=== PATIENT | male | born 1995 | race Caucasian/White ===

== ENCOUNTER 2022-08-02 10:11 | Emergency (ER) | payer SELFPAY ==
--- NOTE | 2022-08-02 10:13 | ECG_ITS ---
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 Measurements Intervals [place] Rate: 99 P: 37 MI: 123 QRS: 63 QRSD: 96 T: 55 QT: 327 QTc: 420 Interpretive Statements SINUS RHYTHM WITH SINUS ARRHYTHMIA Compared to ECG 05/17/2015 11:53:00 Short MI interval no longer present Intraventricular conduction delay no longer present Early repolarization no longer present Electronically Signed On 08-02-2022 16:20:38 POLICY OFFICER by Natalia Baldwin M.D. [id number]
--- NOTE | 2022-08-02 10:13 | XRR_ITS ---
PROCEDURE INFORMATION: Exam: XR Chest Exam date and time: 08/02/2022 10:22 AM Age: 26 years old Clinical indication: Angina pectoris; Patient HX: Cp for 1 month, pain in back and on left side; Additional info: Chest pain TECHNIQUE: Imaging protocol: Radiologic exam of the chest. Views: 1 view. COMPARISON: CR XR chest 2V* [id number] 05/28/2016 6:22 PM FINDINGS: Lungs: Unremarkable. No consolidation. Pleural spaces: Unremarkable. No pleural effusion. No pneumothorax. Heart/Mediastinum: Unremarkable. No cardiomegaly. Bones/joints: Unremarkable. XR/XR chest 1V portable [id number] IMPRESSION: No acute findings.
[2022-08-02 10:17] VITALS: BP 115/78; PULSE 102; RESP 17; TEMP 36.8; O2SAT 96; BMI 25.0
--- NOTE | 2022-08-02 10:18 | ECG_ITS ---
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 Measurements Intervals [place] Rate: 99 P: 37 TN: 123 QRS: 63 QRSD: 96 T: 55 QT: 327 QTc: 420 Interpretive Statements SINUS RHYTHM WITH SINUS ARRHYTHMIA Compared to ECG 05/17/2015 11:53:00 Short TN interval no longer present Intraventricular conduction delay no longer present Early repolarization no longer present Electronically Signed On 08-02-2022 14:24:42 FURNITURE SANDER by Natalia Baldwin M.D. [email or web address]/[id number]
[2022-08-02 10:22] VITALS: BP 99/61; PULSE 90; RESP 16; O2SAT 97
--- NOTE | 2022-08-02 10:29 | ED_ITS ---
HPI - Chest Pain General: Chief Complaint: Chest Pain Stated Complaint: chest pain 1xmonth Time Seen by Provider: 08/02/22 10:13 Source: patient Mode of arrival: ambulatory Limitations: no limitations History of Present Illness: Patient is a 26-year-old male who presents to ED today with a complaint of right-sided chest pains that have been present over the past month. He states pain is located to his right anterior lateral chest near the nipple line. He states pain has been constant and seems to be worse with certain movements of the chest as well as coughing, deep inhalation, and movement. Patient states he was driving today when he sneezed and immediately felt excruciating pain to the area and states he was having trouble moving his right arm. After further clarification he states that movement of his right arm exacerbates the pain in his chest. He denies shortness of breath. He does state he has been coughing more than he normally does with his smoking history. No hemoptysis. No fevers. MD complaint: chest pain Onset (ago): week(s) Timing of current episode: constant Prior episodes: No Pain location: right chest and lateral Pain radiation: none Severity: moderate Quality: sharp Relieving factors: nothing Exacerbating factors: inspiration, movement and other (coughing/sneezing ) Associated symptoms: Deny abdominal pain, dyspnea, fever(s), nausea, palpitations, syncope or vomiting Treatment prior to arrival: none Risk Factors: Coronary artery disease risk factors: smoking history Thoracic aortic dissection risk factors: none Review of Systems Const: Denies: fever(s), chills, body aches, fatigue or malaise Eyes: Denies: change in vision, blurry vision, photophobia, floaters or seeing flashes Card: Reports: chest pain; Denies: palpitations, irregular heart rhythm, edema, swelling of feet/ankles, lightheadedness, syncope, pre-syncope, dyspnea on exertion, orthopnea, leg pain with exertion or acrocyanosis Resp: Reports: non-productive cough, pain on inspiration and chest congestion; Denies: dyspnea, wheezing, stridor, change in phlegm color or hemoptysis GI: Denies: abdominal pain, nausea, vomiting or change in bowel habits : Denies: flank pain, dysuria or hematuria Musc: Denies: neck pain, back pain, extremity pain or joint pain Skin/Breast: Denies: rash Neuro: Denies: headache(s), numbness in extremities, weakness in extremities, sensory changes or dizziness Physical Exam Const: COMMON NORMALS: no acute distress, average body habitus, patient oriented x3, no limitations, healthy appearing, alert and well nourished GENERAL APPEARANCE: cooperative and odor of alcohol detected OR IENTATION/CONSCIOUSNESS: Yes awake, Yes oriented to person, Yes oriented to place and Yes oriented to time HENMT: COMMON NORMALS: normocephalic and atraumatic HEAD & SCALP: normal to inspection, normocephalic and atraumatic Eye: GENERAL EYE: appearance normal, both eyes and all related structures Neck/C-Spine: COMMON NORMALS: full ROM, no lymphadenopathy, supple and no meningeal signs Chest: COMMONS NORMALS: normal inspection of the chest and normal palpation of entire chest wall OTHER: patient doesn't have reproducible chest pain with palpation however pain is producible with movement/ROM of R UE and twisting/lateral rotations of chest Chest images (male): 1. Resp: COMMON NORMALS: normal respiratory effort and clear to auscultation bilaterally AUSCULTATION: clear to auscultation bilaterally Cardio: COMMON NORMALS: regular rhythm RATE: tachycardic (at times during my examination) RHYTHM: regular rhythm GI: COMMON NORMALS: Normal to inspection, nondistended, normoactive bowel sounds present, Soft to palpation, non-tender, No hepatosplenomegaly present and no masses PALPATION: Yes Soft to palpation and Yes No hepatosplenomegaly present : COMMON NORMALS: Yes no CVA tenderness BLADDER/KIDNEY EXAM: Yes no CVA tenderness Back/Pelvis: COMMON NORMALS: no CVA tenderness and thoracic and lumbar spine normal to inspection Extremity: COMMON NORMALS: normal to inspection, capillary refill normal, no joint enlargement, no clubbing, cyanosis or edema, no calf tenderness and no pedal edema GENERAL: Yes normal exam except as noted Neuro: SYLVIE COMA SCALE: document GCS findings [place] coma scale eye opening: Spontaneous [place] coma scale verbal response: Orientated Sylvie coma scale motor response: Obey commands [place] coma scale total score: 15 COMMON NORMALS: patient oriented x3, moves all extremities, no focal motor deficits, no sensory deficits noted and gait normal SENSORIUM/ORIENTATION: Yes alert, Yes oriented to person, Yes oriented to place and Yes oriented to time MENINGEAL SIGNS: Yes no meningeal signs Skin: COMMON NORMALS: no rashes or lesions noted GENERAL SKIN EXAM: no rashes or lesions noted Course Vital Signs: Vital signs: Vital Signs Temperature 98.2 F 08/02/22 10:17 Pulse Rate 84 08/02/22 11:19 Respiratory Rate 18 08/02/22 11:19 Blood Pressure 99/61 08/02/22 11:19 Pulse Oximetry 95 08/02/22 11:19 Oxygen Delivery Me thod 08/02/22 11:19 MDM - Chest Pain Medical Decision Making Patient is a 26-year-old male here for right-sided chest pain over the past month that acutely worsened after sneezing when he was driving earlier today. Pain seems to be reproducible with rotation/movement of his chest and movement of his right upper extremity. Pulses to the upper extremities are equal bilaterally. Vital signs are stable at this time. Blood work including D-dimer and troponin are unremarkable. EKG showing no ischemic changes. At this time patient will be allowed discharge. Conservative therapies discussed at home for anti-inflammatory use and ice/heat. Follow-up with primary care in one week if symptoms do not seem to be improving. Return ED precautions given. Lab Data 08/02/22 10:38 08/02/22 10:38 Radiology Impressions Chest X-Ray 08/02/22 10:13 IMPRESSION: No acute findings. Laboratory Results WBC 7.9 10^3/uL (4.0-10.0) 08/02/22 10:38 RBC 5.63 10^6/uL (4.1-5.3) H 08/02/22 10:38 Hgb 19.1 g/dL (11.7-16.6) H 08/02/22 10:38 Hct 55.5 % (42.0-52.0) H 08/02/22 10:38 MCV 98.6 fl (80-94) H 08/02/22 10:38 MCH 33.9 pg (28.0-34.0) 08/02/22 10:38 MCHC 34.4 g/dL (30.0-36.0) 08/02/22 10:38 RDW 12.9 % (12.1-15.1) 08/02/22 10:38 Plt Count 260 10^3/cmm (130-400) 08/02/22 10:38 MPV 10.4 fL (7.4-10.4) 08/02/22 10:38 Neut % (Auto) 63.4 % 08/02/22 10:38 Lymph % (Auto) 22.7 % 08/02/22 10:38 Collier % (Auto) 10.6 % 08/02/22 10:38 Eos % (Auto) 1.9 % 08/02/22 10:38 Baso % (Auto) 0.8 % 08/02/22 10:38 Neut # (Auto) 5.03 10^3/uL (1.8-7.7) 08/02/22 10:38 Lymph # (Auto) 1.8 10^3/uL (0.8-4.8) 08/02/22 10:38 Collier # (Auto) 0.8 10^3/uL (0.2-0.9) 08/02/22 10:38 Eos # (Auto) 0.2 10^3/uL (0.0-0.8) 08/02/22 10:38 Baso # (Auto) 0.1 10^3/uL (0.0-0.1) 08/02/22 10:38 Nucleated RBC % (auto) 0 % 08/02/22 10:38 Nucleated RBCs # 0.0 /100WBC 08/02/22 10:38 D-Dimer <= 0.27 ug/mIFEU (0-0.59) 08/02/22 10:38 Sodium 141 mmol/L (136-145) 08/02/22 10:38 Potassium 4.2 mmol/L (3.5-5.1) 08/02/22 10:38 Chloride 102 mmol/L (98-107) 08/02/22 10:38 Carbon Dioxide 24 mmol/L (22-29) 08/02/22 10:38 Anion Gap 19.2 (5-19) H 08/02/22 10:38 BUN 8 mg/dL (6-20) 08/02/22 10:38 Creatinine 0.9 mg/dL (0.7-1.2) 08/02/22 10:38 GFR Calculation 100.5 mL/min (90-130) 08/02/22 10:38 Glucose 75 mg/dL (65-115) 08/02/22 10:38 Calculated Osmolality 289 mOsm/kg (285-295) 08/02/22 10:38 Calcium 9.0 mg/dL (8.5-10.5) 08/02/22 10:38 Total Bilirubin 0.4 mg/dL (0.15-1.2) 08/02/22 10:38 AST 29 U/L (0-40) 08/02/22 10:38 ALT 29 U/L (0-41) 08/02/22 10:38 Alkaline Phosphatase 100 U/L (40-130) 08/02/22 10:38 Troponin T Gen 5 ng/L 6 ng/L (0-15) 08/02/22 10:38 Total Protein 7.2 g/dL (6.6-8.7) 08/02/22 10:38 Albumin 4.4 g/dL (3.5-5.2) 08/02/22 10:38 Globulin 2.8 g/dL (1.3-4.6) 08/02/22 10:38 Discharge Plan Discharge Patient Disposition: Home Clinical Impression: Strain of chest wall Qualifiers: Encounter type: initial encounter Qualified Code(s): S29.011A - Strain of muscle and tendon of front wall of thorax, initial encounter Condition: Stable Prescriptions: No Action naproxen 250 mg Tablet 250 mg PO BID PRN (Reason: Pain) Discharge Orders: Discharge ED (Routine); Ordered 08/02/22 Ordered By: Anju Looney Patient Instructions: Chest Pain - Chest Wall, Chest Wall Pain (ED) Coding Level of Care Code ED Manager Of Corporate Communications for Matt Bello
[2022-08-02 11:03] LABS: Basophils # 0.1 10^3/uL (0.0-0.1); Basophils % 0.8 %; Eosinophils # 0.2 10^3/uL (0.0-0.8); Eosinophils % 1.9 %; Hematocrit 55.5 % (42.0-52.0); Hemoglobin 19.1 g/dL (11.7-16.6); Lymphocytes # 1.8 10^3/uL (0.8-4.8); Lymphocytes % 22.7 %; Mean Corpuscular HGB Conc 34.4 g/dL (30.0-36.0); Mean Corpuscular Hemoglobin 33.9 pg (28.0-34.0); Mean Corpuscular Volume 98.6 fl (80-94); Mean Platelet Volume 10.4 fL (7.4-10.4); Monocytes # 0.8 10^3/uL (0.2-0.9); Monocytes % 10.6 %; Neutrophils # 5.03 10^3/uL (1.8-7.7); Neutrophils % 63.4 %; Nucleated Red Blood Cells % 0 %; Platelet Count 260 10^3/cmm (130-400); Red Blood Count 5.63 10^6/uL (4.1-5.3); Red Cell Distribution Width 12.9 % (12.1-15.1); White Blood Count 7.9 10^3/uL (4.0-10.0)
[2022-08-02 11:12] LABS: D Dimer <= 0.27 ug/mIFEU (0-0.59)
[2022-08-02] MEDS: sodium chloride 0.9% 1,000 ML 999 ML IV (11:12)
[2022-08-02 11:18] LABS: Alanine Aminotransferase 29 U/L (0-41); Albumin Level 4.4 g/dL (3.5-5.2); Alkaline Phosphatase 100 U/L (40-130); Anion Gap 19.2 (5-19); Aspartate Amino Transferase 29 U/L (0-40); Blood Urea Nitrogen 8 mg/dL (6-20); Carbon Dioxide 24 mmol/L (22-29); Chloride 102 mmol/L (98-107); Creatinine Clr Calc Pharmacy 150.3482; Globulin 2.8 g/dL (1.3-4.6); Glomerular Filtration Rate 100.5 mL/min (90-130); Glucose 75 mg/dL (65-115); Osmolality Calculated 289 mOsm/kg (285-295); Potassium 4.2 mmol/L (3.5-5.1); Sodium 141 mmol/L (136-145); Total Bilirubin 0.4 mg/dL (0.15-1.2); Total Protein 7.2 g/dL (6.6-8.7)
[2022-08-02 11:19] VITALS: BP 99/61; PULSE 84; RESP 18; O2SAT 95
[2022-08-02 11:20] LABS: Troponin T (5th) Once 6 ng/L (0-15)
[2022-08-02 11:43] VITALS: BP 99/61; PULSE 84; RESP 18; O2SAT 95
== END 2022-08-02 11:50 | disposition home or self-care (01) ==
PROVIDERS: Emergency Provider Physician Assistant
DX: S29.011A Strain of muscle and tendon of front wall of thorax, initial encounter (principal); X58.XXXA Exposure to other specified factors, initial encounter
CPT/HCPCS: 71045; 80053; 84484; 85025; 85378; 93005; 96360; 99285; J7030

== ENCOUNTER 2025-01-23 10:40 | Emergency (ER) | payer SELFPAY ==
--- OUTSIDE RECORDS SUMMARY | 2025-01-23 10:46 | XMS_ITS | Encounter Summary ---
Author Organization [facility] Address [address] [place] [address] Care Team Providers Care Pump Erector Name Role Phone Erasmo Marie MD Primary Care Provider Eboni vailable Encounter Details Date Type Department Care Team (Latest Contact Info) Description 10/12/2004 Outpatient Historical [facility] [place] [address] [place] [phone] Erasmo Marie MD NO ADDRESS ON FILE NAUSEA WITH VOMITING (Primary Dx); ABDOMINAL PAIN UNSPEC SITE; NONINFEC GASTROENTERIT NEC; PARALYTIC ILEUS (CMS/HCC) Social History Tobacco Use Types Packs/Day Years Used Date Smoking Tobacco: Never Assessed Sex and Gender Information Value Date Recorded Sex Assigned at Not on file Legal Sex Male 3:18 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 Gender Identity Not on file Sexual Orientation Not on file documented as of this encounter Plan of Treatment Not on file documented as of this encounter Visit Diagnoses Diagnosis Nausea with vomiting- Primary Abdominal pain, unspecified site Other and unspecified noninfectious gastroenteritis and colitis(558.9) Other and unspecified noninfectious gastroenteritis and colitis Paralytic ileus (CMS/HCC) Paralytic ileus documented in this encounter Care Teams Pump Erector Relationship Specialty Start Date End Date Erasmo Marie MD NO ADDRESS ON FILE PCP - General 10/12/04 05/05/18 documented as of this encounter
--- OUTSIDE RECORDS SUMMARY | 2025-01-23 10:46 | XMS_ITS | Encounter Summary ---
Author Organization [facility] Address [address] [place] [address] Care Team Providers Care Gear Tooth Lapping Machine Operator Name Role Phone Erasmo Marie MD Primary Care Provider Eboni vailable Encounter Details Date Type Department Care Team (Latest Contact Info) Description 07/14/2003 Outpatient Historical [facility] Erasmo Marie MD NO ADDRESS ON FILE Routine child health exam (Primary Dx) Social History Tobacco Use Types Packs/Day Years Used Date Smoking Tobacco: Never Assessed Sex and Gender Information Value Date Recorded Sex Assigned at Not on file 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
--- OUTSIDE RECORDS SUMMARY | 2025-01-23 10:46 | XMS_ITS | Encounter Summary ---
Author Organization [facility] Address [address] [place] [address] Care Team Providers Care Systems Applications Programming Lead Name Role Phone Erasmo Marie MD Primary Care Provider Eboni vailable Encounter Details Date Type Department Care Team (Latest Contact Info) Description 10/12/2004 Outpatient Historical [facility] [address] [place] [phone] Erasmo Marie MD NO ADDRESS ON FILE ASCITES (Primary Dx) Social History Tobacco Use Types Packs/Day Years Used Date Smoking Tobacco: Never Assessed Sex and Gender Information Value Date Recorded Sex Assigned at Not on file 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
--- OUTSIDE RECORDS SUMMARY | 2025-01-23 10:46 | XMS_ITS | Clinical Summary ---
Author Organization [facility] Address [address] [place] [address] Care Team Providers Care Director Graphics Name Role Phone Unavailable Primary Care Provider Unavailabl e Allergies No known active allergies Medications No known medications Immunizations Immunization Administration Dates Next Due (ADACEL/BOOSTRIX)(10 YR UP) TDAP VACCINE, 0.5ML, IM 02/24/2008 (HAVRIX/VAQTA)(12 MO-18 YRS) HEPATITIS A VACCINE 0.5 ML PED/ADOL 2 DOSE, IM 02/24/2008 (M-M-R II/PRIORIX)(12 [place] UP) MEASLES, MUMPS AND RUBELLA VIRUS VACCINE, 0.5 ML IM/SUBCUT 02/01/1999,03/22/1995 (VARIVAX)(12 MOS UP)VARICELL A VIRUS VACCINE (PF) 0.5 ML, SUB CUT 02/24/2008,12/24/1995 Dt Dtp Dtap Vaccine 02/01/1999, 5,07/03/1994,04/25,02/21/1994 HIB, Unspecified Formulation 03/22/1995,04/25/19 94,02/21/1994 Hepatitis A Vaccine 02/01/1999 Hepatitis B Vaccine 02/01/1999 IPV/OPV 02/01/1999, 5,04/25/1994,02/21 Meningococcal A Conjugate Vaccine IM 02/24/2008 Social History Tobacco Use Types Packs/Day Years Used Date Smoking Tobacco: Never Assessed Sex and Gender Information Value Date Recorded Sex Assigned at Not on file 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 Gender Identity Not on file Sexual Orientation Not on file Last Filed Vital Signs Vital Sign Reading Time Taken Comments Blood Pressure 101/56 02/24/2008 1:25 PM CDT Pulse 50 02/24/2008 1:25 PM CDT Temperature - - Respiratory Rate - - Oxygen Saturation - - Inhaled Oxygen Concentration - - Weight 63.5 kg (140 lb) 02/24/2008 1:25 PM CDT Height 179.1 cm (5' 10.5 ) 02/24/2008 1:25 PM CD T Body Mass Index 19.8 02/24/2008 1:25 PM CDT Plan of Treatment Health Maintenance Due Date Last Done Comments HEPATITIS B VACCINES (2 of 3 - 3-dose series) 03/01/1999 02/01/1999 HPV VACCINES (1 - Male 3-dos e series) 2008 DTAP/TDAP/TD VACCINES (7 - T d or Tdap) 02/23/2018 02/24/2008, 02/01/1999, 03/22/1995, Additional history exists INFLUENZA VACCINE (#1) 2025 Insurance [employer]
--- OUTSIDE RECORDS SUMMARY | 2025-01-23 10:46 | XMS_ITS | Encounter Summary ---
Author Organization [facility] Address [address] [place] [address] Care Team Providers Care Cooper Helper Name Role Phone Erasmo Marie MD Primary Care Provider Eboni vailable Encounter Details Date Type Department Care Team (Latest Contact Info) Description 10/12/2004 Outpatient Historical [facility] [facility] [place] [address] [place] [address] Fred Wilks MD NO ADDRESS ON FILE INFECTIOUS ENTERITIS NOS (Primary Dx) Social History Tobacco Use Types Packs/Day Years Used Date Smoking Tobacco: Never Assessed Sex and Gender Information Value Date Recorded Sex Assigned at Not on file Legal Sex Male 3:18 AM ACUTE CARE PHYSICAL THERAPIST Gender Identity Not on file Sexual Orientation Not on file documented as of this encounter Plan of Treatment Not on file documented as of this encounter Visit Diagnoses Diagnosis Infectious colitis, enteritis, and gastroenteritis- Primary documented in this encounter Care Teams Cooper Helper Relationship Specialty Start Date End Date Erasmo Marie MD NO ADDRESS ON FILE PCP - General 10/12/04 05/05/18 documented as of this encounter
--- OUTSIDE RECORDS SUMMARY | 2025-01-23 10:46 | XMS_ITS | Encounter Summary ---
Author Organization [facility] Address [address] [place] [address] Care Team Providers Care Curriculum Specialist Name Role Phone Erasmo Marie MD Primary Care Provider Eboni vailable Encounter Details Date Type Department Care Team (Late st Contact Info) Description 06/12/2000 Outpatient Historical [facility] [address] [place] [address] Erasmo Marie MD NO ADDRESS ON FILE Social History Tobacco Use Types Packs/Day Years Used Date Smoking Tobacco: Never Assessed Sex and Gender Information Value Date Recorded Sex Assigned at Not on file Legal Sex Male 3:18 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
--- OUTSIDE RECORDS SUMMARY | 2025-01-23 10:46 | XMS_ITS | Encounter Summary ---
Author Organization [facility] Address [address] [place] [address] Care Team Providers Care Priming Machine Operator Name Role Phone Erasmo Marie MD Primary Care Provider Eboni vailable Encounter Details Date Type Department Care Team (Latest Contact Info) Description 05/10/2001 Outpatient Historical [facility] [address] [place] [phone] Jey Waggoner MD [address] [place] [phone] COUGH (Primary Dx) Social History Tobacco Use Types Packs/Day Years Used Date Smoking Tobacco: Never Assessed Sex and Gender Information Value Date Recorded Sex Assigned at Not on file 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
--- OUTSIDE RECORDS SUMMARY | 2025-01-23 10:46 | XMS_ITS | Encounter Summary ---
Author Organization [facility] Address [address] [place] [address] Care Team Providers Care Monotype Keyboard Operator Name Role Phone Erasmo Marie MD Primary Care Provider Eboni vailable Encounter Details Date Type Department Care Team (Latest Contact Info) Description 05/14/2001 Outpatient Historical [facility] [address] [place] [address] Erasmo Marie MD NO ADDRESS ON FILE BRONCOPNEUMONIA ORG NOS (Primary Dx) Social History Tobacco Use Types Packs/Day Years Used Date Smoking Tobacco: Never Assessed Sex and Gender Information Value Date Recorded Sex Assigned at Not on file Legal Sex Male 3:18 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
--- OUTSIDE RECORDS SUMMARY | 2025-01-23 10:46 | XMS_ITS | Encounter Summary ---
Author Organization [facility] Address [address] [place] [address] Care Team Providers Care Chairlift Operator Name Role Phone Erasmo Marie MD Primary Care Provider Eboni vailable Encounter Details Date Type Department Care Team (Latest Contact Info) Description 10/13/2000 Outpatient Historical [facility] [address] [place] [address] Fred Wilks MD NO ADDRESS ON FILE Open wound of hand except finger(s) alone, without mention of complication (Primary Dx) Social History Tobacco Use Types Packs/Day Years Used Date Smoking Tobacco: Never Assessed Sex and Gender Information Value Date Recorded Sex Assigned at Not on file Legal Sex Male 3:18 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
--- OUTSIDE RECORDS SUMMARY | 2025-01-23 10:46 | XMS_ITS | Encounter Summary ---
Author Organization [facility] Address [address] [place] [address] Care Team Providers Care Knuckle Bender Name Role Phone Erasmo Marie MD Primary Care Provider Eboni vailable Encounter Details Date Type Department Care Team (Late st Contact Info) Description 01/28/2001 Outpatient Historical [facility] [address] [place] [address] Erasmo Marie MD NO ADDRESS ON FILE Social History Tobacco Use Types Packs/Day Years Used Date Smoking Tobacco: Never Assessed Sex and Gender Information Value Date Recorded Sex Assigned at Not on file Legal Sex Male 3:18 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
--- OUTSIDE RECORDS SUMMARY | 2025-01-23 10:46 | XMS_ITS | Encounter Summary ---
Author Organization [facility] Address [address] [place] [address] Care Team Providers Care Textile Designer Name Role Phone Erasmo Marie MD Primary Care Provider Eboni vailable Encounter Details Date Type Department Care Team (Latest Contact Info) Description 04/19/2003 Outpatient Historical [facility] Ur[facility] [address] [place] [address] Fred Wilks MD NO ADDRESS ON FILE ACUTE PHARYNGITIS (Primary Dx) Social History Tobacco Use Types Packs/Day Years Used Date Smoking Tobacco: Never Assessed Sex and Gender Information Value Date Recorded Sex Assigned at Not on file 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
--- OUTSIDE RECORDS SUMMARY | 2025-01-23 10:46 | XMS_ITS | Encounter Summary ---
Author Organization [facility] Address [address] [place] [address] Care Team Providers Care Rn Pediatric Icu Name Role Phone Erasmo Marie MD Primary Care Provider Eboni vailable Encounter Details Date Type Department Care Team (Latest Contact Info) Description 05/10/2001 Outpatient Historical [facility]s-[place] [address] [place] [address] Jey Waggoner MD [address] [place] [phone] BRONCOPNEUMONIA ORG NOS (Primary Dx); ACUTE BRONCHIOLITIS/OTHR INFECT ORG Social History Tobacco Use Types Packs/Day Years Used Date Smoking Tobacco: Never Assessed Sex and Gender Information Value Date Recorded Sex Assigned at Not on file Legal Sex Male 3:18 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
[2025-01-23 10:50] VITALS: BP 143/97; PULSE 87; RESP 14; TEMP 36.8; O2SAT 97; BMI 22.5
--- NOTE | 2025-01-23 11:10 | ED_ITS ---
HPI - Dental/Oral 2 General: Chief complaint: Dental/Oral Stated complaint: L side tooth Pain wants meds changed Time Seen by Provider: 01/23/25 11:03 Source: patient Mode of arrival: ambulatory Limitations: no limitations History of Present Illness: Patient is a 29-year-old male who presents to the ED today for complaints of left-sided dental pain and facial swelling. He states he has had symptoms over the past several days. Was reportedly seen 2 days ago and placed on amoxicillin. He states he has had approximately 3-4 doses of this medication and is not improving. He is not running fevers. He is eating and drinking normally. No drooling or muffled voice. No headache or neck pain. He is in the process of trying to get into a dentist. MD Complaint: tooth pain Onset (ago): day(s) Duration: constant Severity: moderate Relieving factors: nothing Exacerbating factors: nothing Context: history of dental caries and poor dental care Associated symptoms: Denies fever(s) or odynophagia Related Data Home Medications ?Medication ?Instructions ?Recorded ?Confirmed naproxen 250 mg tablet 250 mg PO BID PRN Pain 08/0208/02/22 Previous Rx's ?Medication ?Instructions ?Recorded clindamycin HCl 300 mg capsule 300 mg PO Q6H 7 days #2 8 caps 01/23/25 Allergies Allergy/AdvReac Type Severity Reaction Status Date / Time No Known Allergies Allergy Verified 01/23/25 10:53 Review of Systems 2 Const: Denies: fever(s), chills, body aches, fatigue or malaise ENMT: Reports: dental pain and sinus pain; Denies: throat pain, uvular edema, enlarged tonsils, odynophagia, hoarseness, swelling of lips/tongue, oral sores, ear discharge or nasal discharge Card: Denies: chest pain, palpitations, lightheadedness, syncope or pre- syncope Resp: Denies: dyspnea GI: Denies: nausea or vomiting Musc: Denies: neck pain Skin/Breast: Denies: rash Neuro: Denies: headache(s) Physical Exam 2 Const: COMMON NORMALS: no acute distress, average body habitus, patient oriented x3, no limitations, healthy appearing, alert and well nourished G ENERAL APPEARANCE: cooperative ORIENTATION/CONSCIOUSNESS: Yes awake, Yes oriented to person, Yes oriented to place and Yes oriented to time HENMT: COMMON NORMALS: normocephalic, atraumatic and Normal external nose present HEAD & SCALP: normal to inspection, normocephalic and atraumatic F GAYLE & SINUS: edema on the left; no crepitus, no erythema and no fluctuance NOSE: Normal external nose present MOUTH: Normal oral and palatal mucosa present, lip normal, tongue normal and Normal salivary glands and ducts present TEETH & GINGIVA: Yes caries and Yes poor dentition TEETH & GINGIVA IMAGES: 1. fractured/severe decay 2. significant tooth deterioration due t o decay THROAT: no uvular edema Eye: COMMON NORMALS: Equal, round and reactive pupils present and EOMs intact bilaterally GENERAL EYE: appearance normal, both eyes and all related structures and normal light reflex PUPIL: Yes Equal, round and reactive pupils present DIRECT OPHTHALMOSCOPY: Yes normal light reflex Neck/C-Spine: COMMON NORMALS: full ROM, no lymphadenopathy and no meningeal signs GENERAL: Yes normal visual inspection, No anterior neck swelling and No submandibular swelling Resp: COMMON NORMALS: normal respiratory effort and clear to auscultation bilaterally AUSCULTATION: clear to auscultation bilaterally Cardio: COMMON NORMALS: regular rate and regular rhythm RATE: regular rate RHYTHM: regular rhythm Neuro: COMMON NORMALS: patient oriented x3 SENSORIUM/ORIENTATION: Yes alert, Yes oriented to person, Yes oriented to place and Yes oriented to time MENINGEAL SIGNS: Yes no meningeal signs Course 2 Vital Signs: Vital signs: Vital Signs Temperature 98.2 F 01/23/25 10:50 Pulse Rate 87 01/23/25 10:50 Respiratory Rate 14 01/23/25 10:50 Blood Pressure 143/97 01/23/25 10:50 Pulse Oximetry 97 01/23/25 10:50 Oxygen Delivery Me thod Room Air 01/23/25 10:50 MDM - Dental/Oral Medical Decision Making Patient here for dental pain and facial swelling. This time I do not appreciate any evidence of drainable dental abscess. He is requesting to change his antibiotics-will place him on Clindamycin instead. Recommend prompt dental follow-up. Return precautions discussed. Medical Records I reviewed the patient's medical records. No radiology studies performed this visit Discharge Plan Discharge Patient Disposition: Home Clinical Impression: Toothache, Dental caries Condition: Stable Prescriptions: New clindamycin HCl 300 mg capsule 300 mg PO Q6H 7 Days Qty: 28 0RF No Action naproxen 250 mg Tablet 250 mg PO BID PRN (Reason: Pain) Discharge Orders: Discharge ED (Routine); Ordered 01/23/25 Ordered By: Anju Looney Patient Instructions: Toothache (ED), Patient Portal & Elvis Instructions, Dental Abscess Print Language: Tunisian Coding Level of Care Code ED Guide Plant for Matt Bello
== END 2025-01-23 11:38 | disposition home or self-care (01) ==
PROVIDERS: Emergency Provider Physician Assistant
DX: K08.89 Other specified disorders of teeth and supporting structures (principal); K02.9 Dental caries, unspecified
CPT/HCPCS: 99283

== ENCOUNTER 2025-03-06 08:16 | Emergency (ER) | payer SELFPAY ==
[2025-03-06 08:19] VITALS: BP 167/97; PULSE 107; RESP 16; TEMP 37.2; O2SAT 98; BMI 22.5
--- NOTE | 2025-03-06 08:22 | XR_ITS ---
WS: [id number] XR foot LT min 3V* [id number] REASON FOR EXAM: injury FINDINGS: No acute fracture. The joint spaces of the forefoot, midfoot, and hindfoot are intact and well preserved. XR/XR foot LT min 3V* [id number] IMPRESSION: No acute bone or joint abnormality.
--- NOTE | 2025-03-06 08:22 | XR_ITS ---
WS: [id number] XR ankle LT min 3V* [id number] REASON FOR EXAM: injury FINDINGS: Soft tissue swelling over the lateral malleolus. No fracture identified. The joint spaces of the ankle are intact and well preserved. XR/XR ankle LT min 3V* [id number] IMPRESSION: Soft tissue swelling over the lateral malleolus with no acute bone or joint abn ormality identified.
--- OUTSIDE RECORDS SUMMARY | 2025-03-06 08:23 | XMS_ITS | Encounter Summary ---
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
--- OUTSIDE RECORDS SUMMARY | 2025-03-06 08:23 | XMS_ITS | Encounter Summary ---
Author Organization [facility] Address [address] [place] [address] Care Team Providers Care Blue Print Control Clerk Name Role Phone Erasmo Marie MD Primary Care Provider Eboni vailable Encounter Details Date Type Department Care Team (Latest Contact Info) Description 05/10/2001 Outpatient Historical [facility] Pediatrics-[place] [address] [place] [address] Jey Waggoner MD [address] [place] [phone] BRONCOPNEUMONIA ORG NOS (Primary Dx); ACUTE BRONCHIOLITIS/OTHR INFECT ORG Social History Tobacco Use Types Packs/Day Years Used Date Smoking Tobacco: Never Assessed Sex and Gender Information Value Date Recorded Sex Assigned at Not on file 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
--- OUTSIDE RECORDS SUMMARY | 2025-03-06 08:23 | XMS_ITS | Encounter Summary ---
Author Organization [facility] Address [address] [place] [address] Care Team Providers Care Administrative Volunteer Name Role Phone Erasmo Marie MD Primary Care Provider Eboni vailable Encounter Details Date Type Department Care Team (Latest Contact Info) Description 05/10/2001 Outpatient Historical [facility] Imaging Services-[place] [address] [place] [phone] Jey Waggoner MD [address] [place] [phone] COUGH (Primary Dx) Social History Tobacco Use Types Packs/Day Years Used Date Smoking Tobacco: Never Assessed Sex and Gender Information Value Date Recorded Sex Assigned at Not on file 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
--- OUTSIDE RECORDS SUMMARY | 2025-03-06 08:23 | XMS_ITS | Clinical Summary ---
Author Organization [facility] Address [address] [place] [address] Care Team Providers Care Maintenance Pipefitter Name Role Phone Unavailable Primary Care Provider [...] on file Legal Sex Male 3:18 AM BRANCH DIRECTOR Gender Identity Not on file Sexual Orientation [...] of 3 - 3-dose series) 03/01/1999 02/01/1999 DTAP/TDAP/TD VACCINES (7 - T d or Tdap) 02/23/2018 02/24/2008, 02/01/1999, 03/22/1995, Additional history exists HPV VACCINES (1 - 3-dose SCD M series) 2020 INFLUENZA VACCINE (#1) 2025 Insurance [employer]
--- OUTSIDE RECORDS SUMMARY | 2025-03-06 08:23 | XMS_ITS | Encounter Summary ---
Author Organization [facility] Address [address] [place] [address] Care Team Providers Care Web Development Instructor Name Role Phone Erasmo Marie MD Primary Care Provider Eboni vailable Encounter Details Date Type Department Care Team (Latest Contact Info) Description 10/12/2004 Outpatient Historical [facility] Urgent Care[facility] [address] [place] [address] Fred Wilks MD NO ADDRESS ON FILE INFECTIOUS ENTERITIS NOS (Primary Dx) Social History Tobacco Use Types Packs/Day Years Used Date Smoking Tobacco: Never Assessed Sex and Gender Information Value Date Recorded Sex Assigned at Not on file Legal Sex Male 3:18 AM 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
--- OUTSIDE RECORDS SUMMARY | 2025-03-06 08:23 | XMS_ITS | Encounter Summary ---
Author Organization [facility] Address [address] [place] [address] Care Team Providers Care Diploma Dental Assistant Name Role Phone Erasmo Marie MD Primary Care Provider Eboni vailable Encounter Details Date Type Department Care Team (Latest Contact Info) Description 10/13/2000 Outpatient Historical [facility] Urgent Care[facility] [address] [place] [address] Fred Wilks MD NO ADDRESS ON FILE Open wound of hand except finger(s) alone, without mention of complication (Primary Dx) Social History Tobacco Use Types Packs/Day Years Used Date Smoking Tobacco: Never Assessed Sex and Gender Information Value Date Recorded Sex Assigned at Not on file 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
--- OUTSIDE RECORDS SUMMARY | 2025-03-06 08:23 | XMS_ITS | Encounter Summary ---
Author Organization [facility] Address [address] [place] [address] Care Team Providers Care Remote Sensing Technologist Name Role Phone Erasmo Marie MD Primary Care Provider Eboni vailable Encounter Details Date Type Department Care Team (Latest Contact Info) Description 10/12/2004 Outpatient Historical [facility] Imaging Services [address] [place] [phone] Erasmo Marie MD NO ADDRESS ON FILE ASCITES (Primary Dx) Social History Tobacco Use Types Packs/Day Years Used Date Smoking Tobacco: Never Assessed Sex and Gender Information Value Date Recorded Sex Assigned at Not on file 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
--- OUTSIDE RECORDS SUMMARY | 2025-03-06 08:23 | XMS_ITS | Encounter Summary ---
Author Organization [facility] Address [address] [place] [address] Care Team Providers Care Industrial Sociologist Name Role Phone Erasmo Marie MD Primary Care Provider Eboni vailable Encounter Details Date Type Department Care Team (Latest Contact Info) Description 05/14/2001 Outpatient Historical [facility] Pediatrics-[place] [address] [place] [address] Erasmo Marie MD NO ADDRESS ON FILE BRONCOPNEUMONIA ORG NOS (Primary Dx) Social History Tobacco Use Types Packs/Day Years Used Date Smoking Tobacco: Never Assessed Sex and Gender Information Value Date Recorded Sex Assigned at Not on file 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
--- OUTSIDE RECORDS SUMMARY | 2025-03-06 08:23 | XMS_ITS | Encounter Summary ---
Author Organization [facility] Address [address] [place] [address] Care Team Providers Care Torpedo Worker Name Role Phone Erasmo Marie MD Primary Care Provider Eboni vailable Encounter Details Date Type Department Care Team (Late st Contact Info) Description 01/28/2001 Outpatient Historical [facility] Pediatrics[facility] [address] [place] [address] Erasmo Marie MD NO ADDRESS ON FILE Social History Tobacco Use Types Packs/Day Years Used Date Smoking Tobacco: Never Assessed Sex and Gender Information Value Date Recorded Sex Assigned at Not on file Legal Sex Male 3:18 AM 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
--- OUTSIDE RECORDS SUMMARY | 2025-03-06 08:23 | XMS_ITS | Encounter Summary ---
Author Organization [facility] Address [address] [place] [address] Care Team Providers Care Rehabilitation Coordinator Name Role Phone Erasmo Marie MD Primary Care Provider Eboni vailable Encounter Details Date Type Department Care Team (Latest Contact Info) Description 04/19/2003 Outpatient Historical [facility] Urgent Care-[place] [address] [place] [address] Fred Wilks MD NO ADDRESS ON FILE ACUTE PHARYNGITIS (Primary Dx) Social History Tobacco Use Types Packs/Day Years Used Date Smoking Tobacco: Never Assessed Sex and Gender Information Value Date Recorded Sex Assigned at Not on file 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
--- OUTSIDE RECORDS SUMMARY | 2025-03-06 08:23 | XMS_ITS | Encounter Summary ---
Author Organization [facility] Address [address] [place] [address] Care Team Providers Care Petrophysicist Name Role Phone Erasmo Marie MD Primary Care Provider Eboni vailable Encounter Details Date Type Department Care Team (Late st Contact Info) Description 06/12/2000 Outpatient Historical [facility] Pediatrics-[place] [address] [place] [address] Erasmo Marie MD NO ADDRESS ON FILE Social History Tobacco Use Types Packs/Day Years Used Date Smoking Tobacco: Never Assessed Sex and Gender Information Value Date Recorded Sex Assigned at Not on file 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
--- OUTSIDE RECORDS SUMMARY | 2025-03-06 08:23 | XMS_ITS | Encounter Summary ---
Author Organization [facility] Address [address] [place] [address] Care Team Providers Care Blending Tank Helper Name Role Phone Erasmo Marie MD Primary Care Provider Eboni vailable Encounter Details Date Type Department Care Team (Latest Contact Info) Description 10/12/2004 Outpatient Historical [facility] [place] [address] [place] [phone] Erasmo Marie MD NO ADDRESS ON FILE NAUSEA WITH VOMITING (Primary Dx); ABDOMINAL PAIN UNSPEC SITE; NONINFEC GASTROENTERIT NEC; PARALYTIC ILEUS (CMS/HCC) Social History Tobacco Use Types Packs/Day Years Used Date Smoking Tobacco: Never Assessed Sex and Gender Information Value Date Recorded Sex Assigned at Not on file 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 Sex Male 3:18 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 Gender Identity Not on file Sexual Orientation Not on file documented as of this encounter Plan of Treatment Not on file documented as of this encounter Visit Diagnoses Diagnosis Nausea with vomiting- Primary Abdominal pain, unspecified site Other and unspecified noninfectious gastroenteritis and colitis(558.9) Other and unspecified noninfectious gastroenteritis and colitis Paralytic ileus (CMS/HCC) Paralytic ileus documented in this encounter Care Teams Blending Tank Helper Relationship Specialty Start Date End Date Erasmo Marie MD NO ADDRESS ON FILE PCP - General 10/12/04 05/05/18 documented as of this encounter
[2025-03-06] MEDS: HYDROcodone-acetaminophen 5-325 mg Tablet 1 TAB PO (08:26)
--- NOTE | 2025-03-06 08:26 | W.ED.EXTPRO ---
HPI - Extremity Problem General: Chief complaint: Extremity Injury, Lower Stated complaint: L foot Hurt Time Seen by Provider: 03/06/25 08:21 Source: patient Mode of arrival: ambulatory Limitations: no limitations History of Present Illness: 29-year-old male states that he stepped on a walnut last night and twisted his left ankle. States been having pain and bruising in left ankle and left lateral foot since the event. He denies any knee pain denies any other injury rates his pain a 2 out of 10 currently states much improved with rest worse when he tries to ambulate Related Data Home Medications ?Medication ?Instructions ?Recorded ?Confirmed naproxen 250 mg tablet 250 mg PO BID PRN Pain 08/02/22 08/02/22 Allergies Allergy/AdvReac Type Severity Reaction Status Date / Time No Known Allergies Allergy Verified 01/23/25 10:53 Review of Systems Musc: Reports: extremity pain Physical Exam Const: COMMON NORMALS: no acute distress, patient oriented x3 and healthy appearing HENMT: COMMON NORMALS: normocephalic and atraumatic HEAD & SCALP: normocephalic and atraumatic Neck/C-Spine: COMMON NORMALS: full ROM Chest: COMMONS NORMALS: normal inspection of the chest Resp: COMMON NORMALS: normal respiratory effort Cardio: COMMON NORMALS: regular rate RATE: regular rate Extremity: NARRATIVE EXTREMITY EXAM: Bruising noted to left lateral foot and ankle tenderness no obvious deformity Neuro: COMMON NORMALS: patient oriented x3, moves all extremities and no focal motor deficits Psych: COMMON NORMALS: mental status grossly normal, Normal thought process present and cooperative THOUGHT PROCESS: Normal thought process present Skin: COMMON NORMALS: no rashes or lesions noted and no wounds GENERAL SKIN EXAM: no rashes or lesions noted Course Vital Signs: Vital signs: Vital Signs Temperature 98.9 F 03/06/25 08:19 Pulse Rate 107 H 03/06/25 08:19 Respiratory Rate 16 03/06/25 08:19 Blood Pressure 167/97 03/06/25 08:19 Pulse Oximetry 98 03/06/25 08:19 Oxygen Delivery Me thod Room Air 03/06/25 08:19 MDM - Extremity (Nontraumatic) Medical Decision Making Patient presents here with left ankle and foot injury. Differential includes foot ankle fracture which was excluded on x-ray did view x-ray of the left foot and x-ray of the left ankle there is no acute fractures. Does have some soft tissue swelling likely has an ankle sprain we will Luis Antonio wrap he is to ice treat pain with Motrin Tylenol did get him crutches he is to weight-bear as tolerated we will get him follow-up with podiatry did go over his x-ray with him he is stable for discharge she is to follow-up as scheduled and return if worsening he understands agrees to plan Medical Records I reviewed the patient's medical records. Lab Data Radiology Impressions Ankle X-Ray 03/06/25 08:22 IMPRESSION: Soft tissue swelling over the lateral malleolus with no acute bone or joint abnormality identified. Foot X-Ray 03/06/25 08:22 IMPRESSION: No acute bone or joint abnormality. All radiology interpretation(s) finalized by discharge Discharge Plan Discharge Patient Disposition: Home Clinical Impression: Left ankle sprain Qualifiers: Encounter type: initial encounter Involved ligament of ankle: unspecified ligament Qualified Code(s): S93.402A - Sprain of unspecified ligament of left ankle, initial encounter Condition: Stable Prescriptions: No Action naproxen 250 mg Tablet 250 mg PO BID PRN (Reason: Pain) Discharge Orders: Discharge ED (Routine); Ordered 03/06/25 Ordered By: Coleen Higgins Referrals: Esteban Francis DPM [Physician, Podiatry] - 4-7 days Discharge Diet: Advance as tolerated Discharge Activity: Increase activity as tolerated Patient Instructions: Ankle Sprain (ED) Print Language: Croatian Coding Level of Care Code ED Key Entry Operator for Matt Bello
--- NOTE | 2025-03-06 09:06 | DCPLANNER ---
messaged podiatry for er f/u
== END 2025-03-06 08:56 | disposition home or self-care (01) ==
PROVIDERS: Emergency Provider Emergency Medicine
DX: S93.402A Sprain of unspecified ligament of left ankle, initial encounter (principal); X58.XXXA Exposure to other specified factors, initial encounter
CPT/HCPCS: 73610; 73630; 99283; J9999